=== PATIENT | female | born 1970 | race African-American/Black ===

== ENCOUNTER 2017-12-19 20:08 | Observation (INO) | payer BC ==
[~2017-12-19] VITALS: Ht 175.3 cm; Wt 68.0 kg
[2017-12-19] MEDS ORDERED: NALBUPHINE HCL 10 MG/1ml INJECTION IV ONE (20:45)
[2017-12-19] MEDS ORDERED: PROMETHAZINE HCL 25 MG/ML 1ML IV ONE (20:45)
[2017-12-19] MEDS ORDERED: SODIUM CHLORIDE 0.9% 1,000 ML IV ONE (21:15)
[2017-12-19 21:35] LABS: Basophils # (auto) 0 uL; Basophils % (auto) 0.2 % (0.0-2.0); Eosinophils # (auto) 0 uL; Eosinophils % (auto) 0.2 % (0.0-7.0); Hemoglobin 13.4 g/dL (12.2-16.2); Lymphocytes % (auto) 13.1 % (10.0-50.0); Mean Corpuscular Hemoglobin 29.6 pg (28.0-32.0); Mean Corpuscular Hgb Conc. 33.5 g/dL (32.0-36.0); Mean Corpuscular Volume 88.3 fL (80.0-100.0); Monocytes # (auto) 0.5 uL; Monocytes % (auto) 6.5 % (0.0-12.0); Neutrophils # (auto) 5.9 uL; Nucleated Red Blood Cells % 0.1 %; Platelet Count (auto) 204 10^3/uL (140-450); Red Blood Cells 4.53 10^6/uL (4.0-5.20); Red Cell Distribution Width 14.7 % (11.8-14.3); White Blood Cell 7.4 10^3/uL (4.4-10.8)
[2017-12-19 21:50] LABS: Albumin 3.2 g/dL (3.4-5.0); BUN/Creatinine Ratio 21.3; Calcium 8.5 mg/dL (8.5-10.1); Potassium 3.2 mmol/L (3.5-5.1)
[2017-12-19 21:53] LABS: Bilirubin, Total 1.3 mg/dL (0.2-1.0); Total Protein 7.1 g/dL (6.4-8.2)
[2017-12-19 21:56] LABS: INR 1.04 (0.9-1.15); Partial Thromboplastin Time 26.8 sec (23.78-33.04); Prothrombin Time 11.1 sec (9.27-12.13)
[2017-12-20 01:00] VITALS: BP 138/75
[2017-12-20 02:53] LABS: Urine Bacteria FEW /hpf (None Seen); Urine Blood TRACE /uL (Negative); Urine Mucus FEW (None Seen); Urine Specific Gravity 1.034 (1.001-1.035); Urine WBC 2 /hpf (0 - 5)
== END 2017-12-20 01:29 | disposition home or self-care (01) | DRG 392 ==
LOC: ER 20:08 → OVERFLOW 20:09 → ER 12-20 01:29
PROVIDERS: ADMIT Emergency Medicine; ATTEND Emergency Medicine
DX: K29.00 Acute gastritis without bleeding (principal); R10.11 Right upper quadrant pain; G43.A1 Cyclical vomiting, in migraine, intractable; N83.201 Unspecified ovarian cyst, right side; R07.89 Other chest pain; R10.2 Pelvic and perineal pain; Z88.6 Allergy status to analgesic agent
CPT/HCPCS: 36415; 74176; 80053; 80320; 81001; 81025; 83605; 84484; 85025; 85610; 85730; 87040; 87086; 93005; 96361; 96374; 96375; 99285; G0378; J2300; J2550; J7030

== ENCOUNTER 2018-11-07 12:09 | Inpatient (IN) | payer BC ==
[~2018-11-07] VITALS: Ht 165.1 cm; Wt 131.0 kg
[2018-11-07 13:14] LABS: Basophils # (auto) 0 uL; Basophils % (auto) 0.3 % (0.0-2.0); Eosinophils # (auto) 0 uL; Eosinophils % (auto) 0.8 % (0.0-7.0); Hematocrit 38.3 % (36.0-46.0); Hemoglobin 12.9 g/dL (12.2-16.2); Lymphocytes # (auto) 1.4 uL; Lymphocytes % (auto) 25.4 % (10.0-50.0); Mean Corpuscular Hemoglobin 29.1 pg (28.0-32.0); Mean Corpuscular Hgb Conc. 33.7 g/dL (32.0-36.0); Mean Corpuscular Volume 86.4 fL (80.0-100.0); Monocytes # (auto) 0.5 uL; Monocytes % (auto) 8.3 % (0.0-12.0); Neutrophils # (auto) 3.6 uL; Neutrophils % (auto) 65.2 % (37.0-80.0); Nucleated Red Blood Cells % 0.2 %; Platelet Count (auto) 240 10^3/uL (140-450); Red Blood Cells 4.43 10^6/uL (4.0-5.20); Red Cell Distribution Width 15.9 % (11.8-14.3); White Blood Cell 5.6 10^3/uL (4.4-10.8)
[2018-11-07 13:21] LABS: Urine Bacteria NONE SEEN /hpf (None Seen); Urine Blood Negative /uL (Negative); Urine Mucus FEW (None Seen); Urine Specific Gravity 1.027 (1.001-1.035); Urine WBC <1 /hpf (0 - 5)
[2018-11-07 13:31] LABS: Albumin 3.3 g/dL (3.4-5.0); Anion Gap 4 (5-15); Blood Urea Nitrogen 11 mg/dL (7-18); Calcium 8.7 mg/dL (8.5-10.1); Carbon Dioxide 29 mmol/L (21-32); Chloride 113 mmol/L (98-107); Glucose 87 mg/dL (74-106); Potassium 3.5 mmol/L (3.5-5.1); Sodium 146 mmol/L (136-145)
[2018-11-07 13:36] LABS: Alanine Aminotransferase 11 U/L (13-56); Alkaline Phosphatase 114 U/L (45-117); Aspartate Aminotransferase 14 U/L (15-37); BUN/Creatinine Ratio 11.8; Bilirubin, Total 0.5 mg/dL (0.2-1.0); GFR African American 82 mL/min; GFR Non-African American 68 mL/min; Total Protein 7.3 g/dL (6.4-8.2)
[2018-11-07 16:32] LABS: INR 1.01 (0.9-1.15); Partial Thromboplastin Time 27.6 sec (23.64-32.05)
[2018-11-07] MEDS ORDERED: MORPHINE SULF INJ 2 MG/ML SYRINGE 1ML IV ONE (18:45)
[2018-11-07] MEDS ORDERED: ONDANSETRON HCL 4 MG/2 ML VIAL IV ONE ×2 (18:45→22:30)
[2018-11-07] MEDS ORDERED: IOHEXOL 350 MG/ML 100ML IJ ONE (19:04)
[2018-11-07] MEDS ORDERED: HYDROcodone-ACET 5/325MG TAB PO ONE (20:30)
[2018-11-07] MEDS ORDERED: HYDROcodone-ACET 10/325MG TAB PO ONE (20:30)
[2018-11-07 22:00] VITALS: BP 132/69
[2018-11-07] MEDS ORDERED: ONDANSETRON HCL 4 MG/2 ML VIAL IV PRN (22:30)
[2018-11-07] MEDS ORDERED: MORPHINE SULF INJ 2 MG/ML SYRINGE 1ML IV PRN (22:30)
[2018-11-07] MEDS ORDERED: ACETAMINOPHEN 500 MG TAB PO PRN (22:30)
[2018-11-07] MEDS ORDERED: PANTOPRAZOLE 40 MG/10 ML VIAL INJ IV ONE (23:00)
[2018-11-07] MEDS ORDERED: FAMOTIDINE (10MG/ML) 2ML VL IV ONE (23:45)
--- NOTE | 2018-11-07 23:50 | NUR ---
Telemetry admit from [facility] admitted to Telemetry unit. Patient oriented to Bridget Loya RN primary RN, unit, room, bed, and unit policies regarding patient care and visiting hours. Patient now on continuous telemetry monitoring, tele box #33 and telemetry reading on arrival to unit is Sinus Rhythm. Patient placed on bedside oxygen, weighed by bedscale and encouraged to call if they need something. All questions and concerns addressed, patient verbalized understanding. Bed is in lowest locked position with bed rails up x2 and call light is within reach of the patient.
[2018-11-08] VITALS: BP 132/69
[2018-11-08] MEDS ORDERED: CHOL500021 OR (02:42)
[2018-11-08] MEDS ORDERED: MULT1CHW52 PO (02:42)
[2018-11-08] MEDS ORDERED: MELA3TAB27 PO (02:42)
[2018-11-08] MEDS ORDERED: ALBUAER3 IN (02:48)
[2018-11-08] MEDS ORDERED: MULT-228 PO (02:48)
[2018-11-08] MEDS ORDERED: PANT40TA2 PO (02:48)
[2018-11-08] MEDS ORDERED: CHOL500021 PO (02:48)
[2018-11-08 05:28] VITALS: BP 135/81
[2018-11-08 06:10] LABS: Calcium 8.6 mg/dL (8.5-10.1); Potassium 3.8 mmol/L (3.5-5.1)
[2018-11-08 06:51] LABS: Basophils # (auto) 0 uL; Basophils % (auto) 0.3 % (0.0-2.0); Eosinophils # (auto) 0 uL; Hematocrit 37.2 % (36.0-46.0); Hemoglobin 12.2 g/dL (12.2-16.2); Lymphocytes # (auto) 1.7 uL; Mean Corpuscular Hemoglobin 28.4 pg (28.0-32.0); Mean Corpuscular Hgb Conc. 32.8 g/dL (32.0-36.0); Mean Corpuscular Volume 86.5 fL (80.0-100.0); Monocytes # (auto) 0.5 uL; Monocytes % (auto) 9.6 % (0.0-12.0); Neutrophils # (auto) 2.7 uL; Neutrophils % (auto) 55.1 % (37.0-80.0); Nucleated Red Blood Cells % 0.3 %; Platelet Count (auto) 219 10^3/uL (140-450); Red Cell Distribution Width 15.8 % (11.8-14.3)
--- NOTE | 2018-11-08 08:00 | NUR ---
Received pt resting in bed, pt has a CPAP on, pt reported to not have nausea or vomiting when drinking liquids but pt is refusing her clear liquid breakfast, pt requesting regular food, pt denies any pain at this time, pt was given pain medication by night nurse, will continue to monitor pt.
[2018-11-08 08:50] VITALS: BP 119/72
[2018-11-08] MEDS ORDERED: PANTOPRAZOLE 40 MG TAB PO SCH (10:00)
--- NOTE | 2018-11-08 10:25 | NUR ---
GI CONSULT Dr. Charles / GI at bed side to see pt. Doctor discussed the plan of care with pt.
[2018-11-08 13:00] VITALS: BP 140/88
--- NOTE | 2018-11-08 14:30 | NUR ---
Called/paged Dr. Sherif Stacy called regarding pt requesting for a time of d/c. Dr. Gorman ordered a cardio consult. Paged Dr. Cisneros / sodium chlorite operator as per Dr. Gorman's request. Waiting for call back. Continue care.
--- NOTE | 2018-11-08 15:10 | NUR ---
Received call back from Dr. Brown/ cardiology, as per doctor he will come and see pt tomorrow, doctor ordered an echocardiogram, pt informed of plan of care.
[2018-11-08 17:33] VITALS: BP 157/81
--- NOTE | 2018-11-08 18:44 | NUR ---
DR. Tawanna NUNEZ AT UNIT TO SEE PT.
--- NOTE | 2018-11-08 19:23 | NUR ---
Patient signed AMA form after discussing the plan of care with Dr. Tawanna Gorman. Patient educated of the risk of leaving against medical advice, pt verbalized understanding, pt's at bed side.
--- NOTE | 2018-11-08 19:25 | NUR ---
IV removal IV DC'd with clean sterile technique, catheter fully intact. Pressure dressing applied to site. Patient tolerated well.
--- NOTE | 2018-11-08 19:25 | NUR ---
Removed tele box monitor and returned to [facility] tele monitor department.
--- NOTE | 2018-11-08 19:29 | NUR ---
Pt left hospital walking with all personal belongings, accompanied by pt's , no distress noticed at time of departure,
== END 2018-11-08 19:29 | disposition left against medical advice (07) | DRG 392 ==
LOC: ER 12:09 → TELE-WESTW 12:11
PROVIDERS: ADMIT Nurse Practitioner Family; ATTEND Nurse Practitioner Family
DX: K52.9 Noninfective gastroenteritis and colitis, unspecified (principal); E44.1 Mild protein-calorie malnutrition; Z68.42 Body mass index [BMI] 45.0-49.9, adult; K57.30 Diverticulosis of large intestine without perforation or abscess without bleeding; K21.9 Gastro-esophageal reflux disease without esophagitis; K29.70 Gastritis, unspecified, without bleeding; I50.810 Right heart failure, unspecified; N28.1 Cyst of kidney, acquired; M46.00 Spinal enthesopathy, site unspecified; E66.01 Morbid (severe) obesity due to excess calories; Z53.21 Procedure and treatment not carried out due to patient leaving prior to being seen by health care provider; Z90.49 Acquired absence of other specified parts of digestive tract; Z98.84 Bariatric surgery status; Z90.710 Acquired absence of both cervix and uterus; Z88.8 Allergy status to other drugs, medicaments and biological substances; Z82.49 Family history of ischemic heart disease and other diseases of the circulatory system; Z79.899 Other long term (current) drug therapy
CPT/HCPCS: 36415; 70450; 71046; 71275; 74176; 80048; 80053; 81001; 83735; 83880; 84484; 85025; 85379; 85610; 85730; 93005; 94761; 96374; 96375; 96376; G0378; J2405; J3490